=== PATIENT | male | born 1995 | race Caucasian/White ===

== ENCOUNTER → 2017-11-26 | Outpatient (CLI) | payer OTHER | LOC: M RAD 07:15 | DX: J33.0 Polyp of nasal cavity (principal) ==

== ENCOUNTER 2018-02-26 09:26 | Emergency (ER) | payer OTHER ==
[2018-02-26] MEDS: OXYMETAZOLINE NASAL SPRAY (AFRIN) (09:47)
== END 2018-02-26 10:42 | disposition home or self-care (01) ==
LOC: M ED 09:26
DX: R04.0 Epistaxis (principal); J95.830 Postprocedural hemorrhage of a respiratory system organ or structure following a respiratory system procedure
CPT/HCPCS: 99283